=== PATIENT | female | born 1975 | race Caucasian/White ===

== ENCOUNTER 2019-08-16 16:40 | Emergency (ER) | payer MEDICAID, OTHER ==
[~2019-08-16] VITALS: Ht 177.8 cm; Wt 95.3 kg
[2019-08-16] MEDS ORDERED: LEVOTHYROXINE175 MCG ORAL (17:06)
[2019-08-16] MEDS ORDERED: SYNTHROID75 MCG ORAL (17:15)
[2019-08-16] MEDS ORDERED: IBUPROFEN600 MG ORAL (17:15)
--- NOTE | 2019-08-16 17:20 | NUR ---
ER DISCHARGE NOTE: Patient is cleared to be discharged per ERMD, pt is aox4, on room air, with stable vital signs. pt was given dc and prescription instructions, pt was able to verbalize understanding, pt is able to ambulate with steady gait. pt took all belongings.
[2019-08-16 18:05] VITALS: BP 114/76
--- NOTE | 2019-08-16 22:34 | Emergency Room Report ---
History of Present Illness General Chief Complaint: Medication Refill Source: Patient Present Illness Allergies: Coded Allergies: ASPIRIN (Verified Allergy, Unknown, 08/16/19) DIPHENHYDRAMINE (Verified Allergy, Unknown, 08/16/19) PROCHLORPERAZINE (Verified Allergy, Unknown, 08/16/19) Physical Exam Vital Signs Date Time Temp Pulse Resp B/P (MAP) Pulse Ox O2 Delivery O2 Flow Rate FiO2 08/16/19 17:03 98.1 67 19 114/76 (89) 96 Room Air Medical Decision Making Diagnostic Impression: Primary Impression: Encounter for medication refill Last Vital Signs Date Time Temp Pulse Resp B/P (MAP) Pulse Ox O2 Delivery O2 Flow Rate FiO2 08/16/19 18:05 98.1 19 114/76 96 Room Air 08/16/19 17:03 67 Status: improved Disposition: HOME, SELF-CARE Condition: Stable Scripts Ibuprofen* (MOTRIN*) 600 Mg Tablet 600 MG ORAL Q8H PRN for For Pain, #30 TAB 0 Refills Prov: Rajendra Cowan MD 08/16/19 Levothyroxine Sodium* (SYNTHROID*) 75 Mcg Tablet 75 MCG ORAL DAILY, #30 TAB Take in the morning on an empty stomach, at least 30 minutes before food. Prov: Rajendra Cowan MD 08/16/19 Referrals: [facility],REFERRING (PCP) Sergey Fisher MD Patient Instructions: Medicine Refill at the Emergency Department Rajendra Cowan MD Aug 16, 2019 22:34
== END 2019-08-16 17:40 | disposition home or self-care (01) ==
LOC: EMR 17:18
DX: E03.9 Hypothyroidism, unspecified (principal); Z76.0 Encounter for issue of repeat prescription; Z88.6 Allergy status to analgesic agent; Z88.8 Allergy status to other drugs, medicaments and biological substances
CPT/HCPCS: 99282

== ENCOUNTER 2019-10-07 18:53 | Emergency (ER) | payer OTHER ==
[~2019-10-07] VITALS: Ht 177.8 cm; Wt 99.8 kg
[~2019-10-07 18:53] MED LIST: IBUPROFEN600 MG ORAL; LEVOTHYROXINE175 MCG ORAL; SYNTHROID75 MCG ORAL
--- NOTE | 2019-10-07 19:00 | NUR ---
not in room
--- NOTE | 2019-10-07 19:26 | NUR ---
ED Nurse Note: Walk-in patient with complaints of sore throat and cough x 5 days. Patient reports history of fever but has not taken any medication, just rest.
[2019-10-07 19:27] VITALS: BP 137/78
--- NOTE | 2019-10-07 19:43 | Emergency Room Report ---
History of Present Illness General Chief Complaint: Upper Respiratory Illness Source: Patient Present Illness HPI 44 YO Female presents to the ED c/o cough congestion body aches, chills and 8/ [address] x 1 week. Pt. has only tried rest at home to relieve her symptoms. She reports initially experiencing fevers which resolved with out medication. She reports hx of hypothyroid and asthma. Pt. admits to being a smoker. PT. c/o significant nasal drainage production. States cough is worse at night. Pt. reports nausea without vomiting or abdominal pain. Pt. Denies hx of GERD. Pt. denies blood tinged sputum. She reports frequently needing to blow her nose. Allergies: Coded Allergies: ASPIRIN (Verified Allergy, Unknown, 08/16/19) DIPHENHYDRAMINE (Verified Allergy, Unknown, 08/16/19) PROCHLORPERAZINE (Verified Allergy, Unknown, 08/16/19) Patient History Past Medical History: see triage record Past Surgical History: none Pertinent Family History: none Last Menstrual Period: Oct 2012 Now: No Reviewed Nursing Documentation: PMH: Agreed; PSxH: Agreed Nursing Documentation-PMH Past Medical History: No Stated History Review of Systems All Other Systems: negative except mentioned in HPI Physical Exam Vital Signs Date Time Temp Pulse Resp B/P (MAP) Pulse Ox O2 Delivery O2 Flow Rate FiO2 10/07/19 19:08 97.7 111 19 137/78 (97) 96 Room Air Sp02 EP Interpretation: reviewed, normal General Appearance: no apparent distress, alert, GCS 15, non-toxic Head: normocephalic, atraumatic Eyes: bilateral eye normal inspection, bilateral eye PERRL ENT: hearing grossly normal, normal pharynx, normal voice, TMs + canals normal , uvula midline, tonsillar swelling, pharyngeal erythema - evidence of PND, no exudates Neck: full range of motion, no meningismus, no bony tend Respiratory: lungs clear, normal breath sounds, no respiratory distress, no accessory muscle use, speaking full sentences, wheezing - scant expiratory wheeze most prominent with cough. Cardiovascular #1: regular rate, rhythm Gastrointestinal: non tender, soft Musculoskeletal: normal range of motion, gait/station normal, non-tender Neurologic: alert, motor strength/tone normal, oriented x3, sensory intact, responsive, speech normal Psychiatric: judgement/insight normal Lymphatic: no adenopathy Medical Decision Making PA Attestation Dr. Millard Is my supervising Physician whom patient management has been discussed with. Diagnostic Impression: Primary Impression: Viral URI with cough Additional Impression: Sore throat (viral) ER Course 44 YO Female presents to the ED c/o cough congestion body aches, chills and 8/ [address] x 1 week. Pt. has only tried rest at home to relieve her symptoms. She reports initially experiencing fevers which resolved with out medication. She reports hx of hypothyroid and asthma. Pt. admits to being a smoker. PT. c/o significant nasal drainage production. States cough is worse at night. Pt. reports nausea without vomiting or abdominal pain. Pt. Denies hx of GERD. Pt. denies blood tinged sputum. She reports frequently needing to blow her nose. Ddx considered but are not limited to URI, pneumonia, PE, strep pharyngitis, meningitis. Vital signs: pt. is tachycardic. Pt. is afebrile, the remaining VS are WNL H&PE are most consistent with URI- no meningeal signs, oropharynx is not involved, no evidence of bacterial infection at this time. PT. does not meet CENTOR criteria. Pt. symptoms align most with viral syndrome. ORDERS: none required at this time, the diagnosis is clinical ED INTERVENTIONS: None required at this time. --PT. EDUCATION: Discussed antibiotic resistance with inappropriate prescribing of antibiotics for viral illnesses. Discussed signs and symptoms to indicate viral illness versus bacterial illness. DISCHARGE: At this time pt. is stable for d/c to home. Will provide printed patient care instructions, and any necessary prescriptions. Care plan and follow up instructions have been discussed with the patient prior to discharge. Last Vital Signs Date Time Temp Pulse Resp B/P (MAP) Pulse Ox O2 Delivery O2 Flow Rate FiO2 10/07/19 19:27 111 19 Room Air 10/07/19 19:27 97.7 137/78 96 Status: improved Disposition: HOME, SELF-CARE Condition: Stable Scripts Ibuprofen* (MOTRIN*) 600 Mg Tablet 600 MG ORAL THREE TIMES A DAY, #30 TAB 0 Refills Prov: Mena Holley 10/07/19 Benzonatate* (TESSALON PERLE*) 100 Mg Capsule 100 MG ORAL THREE TIMES A DAY, #21 PERLE Prov: Mena Holley 10/07/19 Guaifenesin/Dextromethorphan (Darioitussin Cough-Chest Dm Liq) 237 Ml Liquid 5 ML PO Q6HR, #237 ML Prov: Mena Holley 10/07/19 Albuterol Sulfate* (ALBUTEROL SULFATE MDI*) 8.5 Gm Hfa.aer.ad 2 PUFF INH Q3H, #1 INH 0 Refills Prov: Mena Holley 10/07/19 Patient Instructions: Upper Respiratory Infection, Adult Additional Instructions: Take medications as directed. Follow up with a Primary Care Provider in 3-5 days, even if your symptoms have resolved. --Please review list of primary care clinics, if you do not already have a primary care provider Return sooner to ED if new symptoms occur, or current symptoms become worse. Do not drink alcohol, drive, or operate heavy machinery while taking Cough Syrup as this may cause drowsiness. - Please note that this Emergency Department Report was dictated using [employer] technology software, occasionally this can lead to erroneous entry secondary to interpretation by the dictation equipment. Mena Holley Oct 07, 2019 19:42
[2019-10-07] MEDS ORDERED: TESSALON PERLE100 MG ORAL (19:48)
[2019-10-07] MEDS ORDERED: ROBITUSSIN COU237 M2 PO (19:48)
[2019-10-07] MEDS ORDERED: ALBUTEROL SULF8.5 GM INH (19:48)
[2019-10-07] MEDS ORDERED: IBUPROFEN600 MG ORAL (19:51)
[2019-10-07 19:52] VITALS: BP 137/78
--- NOTE | 2019-10-07 19:52 | NUR ---
ER DISCHARGE NOTE: Patient is cleared to be discharged per ERMD, pt is aox4, on room air, with stable vital signs. pt was given dc and prescription instructions, pt was able to verbalize understanding, pt id band removed without complications. pt is able to ambulate with steady gait. pt took all belongings.
== END 2019-10-07 19:53 | disposition home or self-care (01) ==
LOC: EMR 19:42
DX: J06.9 Acute upper respiratory infection, unspecified (principal); R05 Cough; J02.8 Acute pharyngitis due to other specified organisms; Z88.6 Allergy status to analgesic agent; Z88.8 Allergy status to other drugs, medicaments and biological substances
CPT/HCPCS: 99282

== ENCOUNTER 2019-10-16 22:56 | Emergency (ER) | payer SELFPAY ==
[~2019-10-16] VITALS: Ht 177.8 cm; Wt 99.8 kg
[~2019-10-16 22:56] MED LIST changes: +ALBUTEROL SULF8.5 GM INH; +ROBITUSSIN COU237 M2 PO; +TESSALON PERLE100 MG ORAL
[2019-10-16 23:25] VITALS: BP 136/88
--- NOTE | 2019-10-16 23:25 | NUR ---
ED Nurse Note: Pt walked into ED from home for c/o flu like symptoms onset 3 days ago. Pt reports painful cough, headache, lower back pain, abdominal pain and nausea. Pt is aaox4, speaking in full sentences, ambulatory with steady gait. Will continue to monitor.
--- NOTE | 2019-10-17 01:00 | NUR ---
ED Nurse Note: Pt resting in bed at this time. No acute distress noted. Will continue to monitor.
[2019-10-17 01:11] LABS: APPEARANCE,URINE SLIGHTLY CLOUDY; BILIRUBIN, URINE NEGATIVE (NEGATIVE); GLUCOSE, URINE (UA) NEGATIVE (NEGATIVE); KETONES,URINE 3+ (NEGATIVE); LEUKOCYTE ESTERASE ,URINE NEGATIVE (NEGATIVE); NITRITE,URINE NEGATIVE (NEGATIVE); PH,URINE 6 (4.5-8.0); PROTEIN,URINE 2+ (NEGATIVE); UROBILINOGEN,URINE 1 MG/DL (0.0-1.0)
[2019-10-17 01:15] LABS: BASOPHILS % (AUTO) 0.8 % (0.0-2.0); EOSINOPHILS % (AUTO) 0.1 % (0.0-3.0); HEMATOCRIT 45.9 % (37.0-47.0); HEMOGLOBIN 16.5 G/DL (12.0-16.0); LYMPHOCYTES % (AUTO) 5.5 % (20.0-45.0); MEAN CORPUSCULAR VOLUME 92 FL (80-99); MONOCYTES % (AUTO) 12.7 % (1.0-10.0); NEUTROPHILS % (AUTO) 80.9 % (45.0-75.0); PLATELET COUNT 166 K/UL (150-450); RED BLOOD COUNT 5.01 M/UL (4.20-5.40); RED CELL DISTRIBUTION WIDTH 10.9 % (11.6-14.8)
[2019-10-17 01:23] LABS: ANION GAP 12 mmol/L (5-15); BLOOD UREA NITROGEN 10 mg/dL (7-18); CALCIUM 9.2 MG/DL (8.5-10.1); CARBON DIOXIDE 26 MMOL/L (21-32); CHLORIDE 102 MMOL/L (98-107); CREATININE 0.7 MG/DL (0.55-1.30); POTASSIUM 3.9 MMOL/L (3.5-5.1); SODIUM 140 MMOL/L (136-145)
[2019-10-17 01:24] LABS: COLOR,URINE YELLOW
[2019-10-17 01:31] LABS: ALANINE AMINOTRANSFERASE 81 U/L (12-78); ALBUMIN 4.2 G/DL (3.4-5.0); ALBUMIN/GLOBULIN RATIO 1.2 (1.0-2.7); ALKALINE PHOSPHATASE 68 U/L (46-116); ASPARTATE AMINO TRANSFERASE 37 U/L (15-37); BILIRUBIN,TOTAL 0.4 MG/DL (0.2-1.0); PHOSPHORUS 3.4 MG/DL (2.5-4.9)
[2019-10-17] MEDS ORDERED: Ketorolac 30mg Inj IV ONE (02:30)
[2019-10-17] MEDS ORDERED: Acetaminophen 500mg (ES) tab ORAL ONE (02:30)
[2019-10-17 03:00] VITALS: BP 137/84
[2019-10-17] MEDS ORDERED: HYDROcodone/Acetamin 5/325 tab ORAL ONE (03:00)
[2019-10-17] MEDS ORDERED: TAMIFLU75 MG ORAL (03:07)
[2019-10-17] MEDS ORDERED: TYLENOL325 MG ORAL (03:07)
[2019-10-17] MEDS ORDERED: IBUPROFEN600 MG ORAL (03:07)
[2019-10-17] MEDS ORDERED: CEPHALEXIN500 M1 ORAL (03:08)
[2019-10-17] MEDS ORDERED: GUAIFENESI100 MG/5 M ORAL (03:12)
--- NOTE | 2019-10-17 03:12 | Emergency Room Report ---
History of Present Illness General Chief Complaint: Flu Like Symptoms Source: Patient Present Illness HPI 45-year-old female history of hypothyroidism presents with cough, congestion, fever/chills x3 days no iron alleviating factors severity is moderate, constant she also endorses body aches, no chest pain no shortness of breath, no sputum production, patient presents for evaluation Allergies: Coded Allergies: ASPIRIN (Verified Allergy, Unknown, 08/16/19) DIPHENHYDRAMINE (Verified Allergy, Unknown, 08/16/19) PROCHLORPERAZINE (Verified Allergy, Unknown, 08/16/19) Patient History Past Medical History: see triage record Now: No Reviewed Nursing Documentation: PMH: Agreed; PSxH: Agreed Nursing Documentation-PMH Past Medical History: No History, Except For Review of Systems All Other Systems: negative except mentioned in HPI Physical Exam Vital Signs Date Time Temp Pulse Resp B/P (MAP) Pulse Ox O2 Delivery O2 Flow Rate FiO2 10/16/19 23:17 98.2 138 26 136/88 (104) 96 Room Air Sp02 EP Interpretation: reviewed, normal General Appearance: well appearing, no apparent distress, alert Head: normocephalic, atraumatic Eyes: bilateral eye PERRL, bilateral eye EOMI ENT: uvula midline, moist mucus membranes, nasal congestion Neck: supple, thyroid normal, supple/symm/no masses Respiratory: lungs clear, no respiratory distress, no retraction, no accessory muscle use Cardiovascular #1: normal peripheral pulses, no edema, no gallop, no murmur, tachycardia Gastrointestinal: non tender, soft, no guarding, no rebound Musculoskeletal: normal inspection Neurologic: alert, oriented x3 Psychiatric: mood/affect normal Skin: no rash, warm/dry Medical Decision Making Diagnostic Impression: Primary Impression: Influenza-like symptoms Additional Impression: UTI (urinary tract infection) Qualified Codes: N30.00 - Acute cystitis without hematuria ER Course 45-year-old female presents with flulike symptoms, tachycardic, dehydrated, will start fluid resuscitation, will provide Tylenol, Motrin. Patient with a negative flu swab however given her symptoms tachycardia and muscle aches, she may have the flu given swabs are limited in their ability to detect flu chest x-ray shows no pneumonia, patient also found to have a UTI will provide antibiotics, will provide Tamiflu disposition home with return precautions Patient tachycardia significantly improved Laboratory Tests Test 10/17/19 00:20 10/17/19 00:30 Urine Color Yellow Urine Appearance Slightly cloudy Urine pH 6 (4.5-8.0) Urine Specific [place] 1.025 (1.005-1.035) Urine Protein 2+ (NEGATIVE) H Urine Glucose (UA) Negative (NEGATIVE) Urine Ketones 3+ (NEGATIVE) H Urine Blood 1+ (NEGATIVE) H Urine Nitrite Negative (NEGATIVE) Urine Bilirubin Negative (NEGATIVE) Urine Urobilinogen 1 MG/DL (0.0-1.0) H Urine Leukocyte Esterase Negative (NEGATIVE) Urine RBC 2-4 /HPF (0 - 2) H Urine WBC 2-4 /HPF (0 - 2) Urine Squamous Epithelial Cells Moderate /LPF (NONE/OCC) H Urine Bacteria Moderate /HPF (NONE) H Urine HCG, Qualitative Negative (NEGATIVE) Urine Opiates Screen Negative (NEGATIVE) Urine Barbiturates Screen Negative (NEGATIVE) Phencyclidine (PCP) Screen Negative (NEGATIVE) Urine Amphetamines Screen Negative (NEGATIVE) Urine Benzodiazepines Screen Negative (NEGATIVE) Urine Cocaine Screen Negative (NEGATIVE) Urine Marijuana (THC) Screen Negative (NEGATIVE) White Blood Count 7.0 K/UL (4.8-10.8) Red Blood Count 5.01 M/UL (4.20-5.40) Hemoglobin 16.5 G/DL (12.0-16.0) H Hematocrit 45.9 % (37.0-47.0) Mean Corpuscular Volume 92 FL (80-99) Mean Corpuscular Hemoglobin 33.0 PG (27.0-31.0) H Mean Corpuscular Hemoglobin Concent 36.0 G/DL (32.0-36.0) Red Cell Distribution Width 10.9 % (11.6-14.8) L Platelet Count 166 K/UL (150-450) Mean Platelet Volume 11.8 FL (6.5-10.1) H Neutrophils (%) (Auto) 80.9 % (45.0-75.0) H Lymphocytes (%) (Auto) 5.5 % (20.0-45.0) L Monocytes (%) (Auto) 12.7 % (1.0-10.0) H Eosinophils (%) (Auto) 0.1 % (0.0-3.0) Basophils (%) (Auto) 0.8 % (0.0-2.0) Prothrombin Time 10.4 SEC (9.30-11.50) Prothrombin Time INR 1.0 (0.9-1.1) PTT 30 SEC (23-33) Sodium Level 140 MMOL/L (136-145) Potassium Level 3.9 MMOL/L (3.5-5.1) Chloride Level 102 MMOL/L (98-107) Carbon Dioxide Level 26 MMOL/L (21-32) Anion Gap 12 mmol/L (5-15) Blood Urea Nitrogen 10 mg/dL (7-18) Creatinine 0.7 MG/DL (0.55-1.30) Estimate Glomerular Filtration Rate > 60 mL/min (>60) Glucose Level 118 MG/DL (74-106) H Lactic Acid Level 1.10 mmol/L (0.4-2.0) Calcium Level 9.2 MG/DL (8.5-10.1) Phosphorus Level 3.4 MG/DL (2.5-4.9) Magnesium Level 1.9 MG/DL (1.8-2.4) Total Bilirubin 0.4 MG/DL (0.2-1.0) Aspartate Amino Transferase (AST) 37 U/L (15-37) Alanine Aminotransferase (ALT) 81 U/L (12-78) H Alkaline Phosphatase 68 U/L (46-116) Total Protein 7.8 G/DL (6.4-8.2) Albumin 4.2 G/DL (3.4-5.0) Globulin 3.6 g/dL Albumin/Globulin Ratio 1.2 (1.0-2.7) Lipase 152 U/L (73-393) Microbiology Date/Time Source Procedure Growth Status 10/17/19 00:30 Nasal Nares - Final Complete 10/17/19 00:30 Nasal Nares - Final Complete EKG Diagnostic Results EKG Time: 00:52 EP Interpretation: Sinus tachycardia, rate 113, QTc 47, no acute ST elevations , normal axis Chest X-Ray Diagnostic Results Chest X-Ray Diagnostic Results : Chest X-Ray Ordered: Yes # of Views/Limited/Complete: 1 View Indication: Other - cough EP Interpretation: Yes Interpretation: no consolidation, no effusion, no pneumothorax, no acute cardiopulmonary disease Impression: No acute disease Electronically Signed by: Chris Millard MD Last Vital Signs Date Time Temp Pulse Resp B/P (MAP) Pulse Ox O2 Delivery O2 Flow Rate FiO2 10/16/19 23:25 138 26 Room Air 10/16/19 23:25 98.2 136/88 96 Disposition: HOME, SELF-CARE Condition: Stable Scripts Guaifenesin* (GUAIFENESIN) 100 Mg/5 Ml Liquid 15 ML ORAL Q8H PRN for congestion, #120 ML 0 Refills Prov: Chris Millard MD 10/17/19 Cephalexin* (KEFLEX*) 500 Mg Tablet 500 MG ORAL EVERY 6 HOURS, #28 CAP Prov: Chris Millard MD 10/17/19 Acetaminophen (Tylenol) 325 Mg Tablet 650 MG ORAL Q6H PRN for Prn Pain/Headache/Temp > 101, #30 TAB 0 Refills Prov: Chris Millard MD 10/17/19 Ibuprofen* (MOTRIN*) 600 Mg Tablet 600 MG ORAL Q8H PRN for For Pain, #30 TAB 0 Refills Prov: Chris Millard MD 10/17/19 Oseltamivir Phosphate (Tamiflu) 75 Mg Capsule 75 MG ORAL TWICE A DAY, #10 CAP Prov: Chris Millard MD 10/17/19 [facility] Departure Forms: Return to Work Return to Work Date: Oct 20, 2019 Patient Instructions: Influenza, Adult, [id number], Urinary Tract Infection, [id number] Additional Instructions: The patient was provided with discharge instructions, notified to follow-up with a primary care doctor and or specialist in the next 24-48 hours, and to return to the ED if they have worsening of their symptoms. Please note that this report is being documented using [employer] technology. This can lead to erroneous entry secondary to incorrect interpretation by the dictating instrument. Chris Millard MD Oct 17, 2019 03:12
[2019-10-17] MEDS ORDERED: Cephalexin 500mg cap ORAL ONE (03:15)
[2019-10-17 03:30] VITALS: BP 137/84
[2019-10-17] MEDS ORDERED: Benzonatate 100mg Perles ORAL ONE (03:30)
--- NOTE | 2019-10-17 03:30 | NUR ---
ER DISCHARGE NOTE: Patient is cleared to be discharged per ERMD, pt is aox4, on room air, with stable vital signs. pt was given dc and prescription instructions, pt was able to verbalize understanding, pt id band and iv site removed without complications. pt is able to ambulate with steady gait. pt took all belongings.
--- NOTE | 2019-10-17 04:05 | Diagnostic Imaging Report ---
EXAM: XR Chest, 1 View CLINICAL HISTORY: COUGH TECHNIQUE: Frontal view of the chest. COMPARISON: No relevant prior studies available. FINDINGS: Study limited to a single AP portable view. The cardiac and mediastinal silhouettes are unremarkable. No focal parenchymal consolidation, pneumothorax or pleural fluid collections. Soft tissue attenuation Limited imaging of both lower lobes. Recommend upright PA and lateral views of the chest.
[2019-10-17] MEDS ORDERED: PROMETHAZINE-C118 M1 ORAL (11:34)
== END 2019-10-17 03:30 | disposition home or self-care (01) ==
LOC: EMR 23:59
DX: R05 Cough (principal); N30.00 Acute cystitis without hematuria; R00.0 Tachycardia, unspecified; E86.0 Dehydration; Z88.6 Allergy status to analgesic agent
CPT/HCPCS: 36415; 71045; 80053; 80307; 81003; 81025; 83605; 83690; 83735; 84100; 85025; 85610; 85730; 86710; 87040; 87086; 96374; 99284; J1885; J7030

== ENCOUNTER 2019-10-17 11:14 | Emergency (ER) | payer SELFPAY ==
[~2019-10-17] VITALS: Ht 177.8 cm; Wt 99.8 kg
[~2019-10-17 11:14] MED LIST changes: +CEPHALEXIN500 M1 ORAL; +GUAIFENESI100 MG/5 M ORAL; +TAMIFLU75 MG ORAL; +TYLENOL325 MG ORAL
--- NOTE | 2019-10-17 11:25 | NUR ---
ED Nurse Note: Patient arrived to ED from home. She states that she was here yesterday for flu-like s/s, but she returned today requesting a prescription for migraine medication and cough syrup. Patient AxO x 4, VSS. No s/s of acute distress. Bed in lowest position.
[2019-10-17 11:26] VITALS: BP 119/78
[2019-10-17] MEDS ORDERED: PROMETHAZINE-C118 M1 ORAL (11:34)
[2019-10-17 11:38] VITALS: BP 119/78
--- NOTE | 2019-10-17 11:38 | NUR ---
ED DISCHARGE NOTE: Patient cleared for DC by Dr. Cowan. Patient AxO x 4, VSS. Patient verbalized understanding of DC instructions. Patient ID band removed. Patient ambulates with steady gait and took all belongings.
--- NOTE | 2019-10-17 15:34 | Emergency Room Report ---
History of Present Illness General Chief Complaint: Headache Source: Patient, Medical Record Present Illness HPI 20-year-old female presents ED for evaluation. Complaining of flulike symptoms. Was seen here yesterday for similar symptoms. Was prescribed medications but states that she is unable to fill some of them at the pharmacy she went to. States that her cough is not improving. Is requesting cough medication. Denies fevers or chills. Pain is dull, 6 out of 10, nonradiating. No other aggravating relieving factors. Denies any other associated symptoms Allergies: Coded Allergies: ASPIRIN (Verified Allergy, Unknown, 08/16/19) DIPHENHYDRAMINE (Verified Allergy, Unknown, 08/16/19) PROCHLORPERAZINE (Verified Allergy, Unknown, 08/16/19) Patient History Past Medical History: none Past Surgical History: none Pertinent Family History: none Social History: Denies: smoking, alcohol use, drug use Last Menstrual Period: hystrectomy Now: No Immunizations: UTD Reviewed Nursing Documentation: PMH: Agreed; PSxH: Agreed Nursing Documentation-PMH Past Medical History: No History, Except For Review of Systems All Other Systems: negative except mentioned in HPI Physical Exam Vital Signs Date Time Temp Pulse Resp B/P (MAP) Pulse Ox O2 Delivery O2 Flow Rate FiO2 10/17/19 11:20 98.1 108 18 119/78 (92) 95 Room Air Sp02 EP Interpretation: reviewed, normal General Appearance: no apparent distress, alert, GCS 15, non-toxic Head: normocephalic, atraumatic Eyes: bilateral eye normal inspection, bilateral eye PERRL ENT: hearing grossly normal, normal pharynx, no angioedema, normal voice Neck: full range of motion, supple/symm/no masses Respiratory: chest non-tender, lungs clear, normal breath sounds, speaking full sentences Cardiovascular #1: regular rate, rhythm, no edema Cardiovascular #2: 2+ carotid (R), 2+ carotid (L), 2+ radial (R), 2+ radial (L) , 2+ dorsalis pedis (R), 2+ dorsalis pedis (L) Gastrointestinal: normal bowel sounds, non tender, soft, non-distended, no guarding, no rebound Rectal: deferred Genitourinary: normal inspection, no CVA tenderness Musculoskeletal: back normal, normal range of motion, gait/station normal, non- tender Neurologic: alert, motor strength/tone normal, oriented x3, sensory intact, responsive, speech normal Psychiatric: judgement/insight normal, memory normal, mood/affect normal, no suicidal/homicidal ideation Reflexes: 3+ bicep (R), 3+ bicep (L), 3+ tricep (R), 3+ tricep (L), 3+ knee (R) , 3+ knee (L) Lymphatic: no adenopathy Medical Decision Making Diagnostic Impression: Primary Impression: Flu-like symptoms ER Course Hospital Course 45 yo F presents with flu like symptoms. requesting cough medication Differential diagnoses include: URI, pharyngitis, otitis media, influenza Clinical course Patient placed on stretcher. After initial history physical exam reveals a female in no acute distress. Bilateral TM unremarkable, no pharyngeal erythema. Lungs clear. No CVA tenderness. I reviewed EMR from previous visit. Was prescribed Tamiflu and other medications. We will add prescription for promethazine/codeine. Safe for discharge for close outpatient follow-up. I will provide referrals Diagnosis - influenza-like symptoms Stable and discharged home with prescriptions for promethazine/codeine. drink plenty of fluids. Instructed to followup with PMD. Return to ED if symptoms recur or worsen Last Vital Signs Date Time Temp Pulse Resp B/P (MAP) Pulse Ox O2 Delivery O2 Flow Rate FiO2 10/17/19 11:38 98.1 18 119/78 95 Room Air 10/17/19 11:20 108 Status: improved Disposition: HOME, SELF-CARE Condition: Stable Scripts Codeine/Promethazine Hcl* (PROMETHAZINE-CODEINE SYRUP*) 118 Ml Syrup 5 ML ORAL Q6H PRN for For Cough, #118 ML 0 Refills Prov: Rajendra Cowan MD 10/17/19 Referrals: NOT CHOSEN IPA/,REFERRING (PCP) Krishna [facility] Patient Instructions: Influenza, Adult, [id number] Rajendra Cowan MD Oct 17, 2019 15:34
== END 2019-10-17 11:38 | disposition home or self-care (01) ==
LOC: EMR 11:35
DX: R05 Cough (principal); Z88.6 Allergy status to analgesic agent; Z90.710 Acquired absence of both cervix and uterus
CPT/HCPCS: 99282

== ENCOUNTER → 2019-10-31 | Emergency (ER) | payer SELFPAY ==
[~2019-10-31] VITALS: Ht 177.8 cm; Wt 99.8 kg
[~2019-10-31] MED LIST changes: +PROMETHAZINE-C118 M1 ORAL
[2019-10-31 22:55] VITALS: BP 120/76
--- NOTE | 2019-10-31 22:57 | NUR ---
ER Nurse Note: Pt walked in c/o burning while urinating. Pt stated the s/s occured a few days ago, got treated with antibiotics but not effective. Pt stated no difficulty urinating, however, noted pain and burning. Will continue to montior.
--- NOTE | 2019-10-31 23:06 | Emergency Room Report ---
History of Present Illness General Chief Complaint: Female Urogenital Problems Source: Patient Present Illness HPI This a 45-year-old female with no past medical history. She presents with complaint of cough and dysuria. She said this been ongoing for about a month. She was seen here and x-ray was negative. She was given antibiotics. She states she still have some lower abdominal pain. No fever chills but no nausea no vomiting. Cough is nonproductive nature. Worse with urination. Allergies: Coded Allergies: ASPIRIN (Verified Allergy, Unknown, 08/16/19) DIPHENHYDRAMINE (Verified Allergy, Unknown, 08/16/19) PROCHLORPERAZINE (Verified Allergy, Unknown, 08/16/19) Patient History Past Medical History: see triage record, old chart reviewed Past Surgical History: none Pertinent Family History: none Social History: Denies: smoking Now: No Immunizations: other Reviewed Nursing Documentation: PMH: Agreed; PSxH: Agreed Review of Systems Eye: Denies: eye pain, blurred vision ENT: Denies: ear pain, nose congestion, throat swelling Respiratory: Reports: cough; Denies: shortness of breath Cardiovascular: Denies: chest pain, palpitations Gastrointestinal: Denies: abdominal pain, diarrhea, nausea, vomiting Genitourinary: Reports: dysuria, frequency Musculoskeletal: Denies: back pain, joint pain Skin: Denies: rash Neurological: Denies: headache, numbness Endocrine: Denies: increased thirst, increased urine Hematologic/Lymphatic: Denies: easy bruising All Other Systems: negative except mentioned in HPI Physical Exam Vital Signs Date Time Temp Pulse Resp B/P (MAP) Pulse Ox O2 Delivery O2 Flow Rate FiO2 10/31/19 22:07 97.9 94 19 120/76 (91) 96 Room Air Vitals normal Sp02 EP Interpretation: reviewed, normal General Appearance: well appearing, no apparent distress, alert Head: normocephalic, atraumatic Eyes: bilateral eye PERRL, bilateral eye EOMI ENT: hearing grossly normal, normal pharynx Neck: full range of motion, supple, no meningismus Respiratory: chest non-tender, lungs clear, normal breath sounds Cardiovascular #1: regular rate, rhythm, no murmur Gastrointestinal: normal bowel sounds, non tender, no mass, no organomegaly, no bruit, non-distended Genitourinary: other - 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 External exam normal. Internal exam shows scant discharge. Musculoskeletal: back normal, normal range of motion, gait/station normal Psychiatric: mood/affect normal Medical Decision Making Diagnostic Impression: Primary Impression: Pelvic pain ER Course Patient presents with pelvic pain. No evidence of a urinary tract infection. She may have a yeast infection since she has been on lots of antibiotics. CT scan negative for any pelvic pathology. Wet mount pending to see if she has any yeast infection, trichomonas, or bacterial vaginosis. Patient with pelvic pain. No evidence of PID since she had a hysterectomy already. No evidence of a bacterial vaginosis or yeast infection. Urine is negative. Will discharge home. CT/MRI/US Diagnostic Results CT/MRI/US Diagnostic Results : Imaging Test Ordered: CT abdomen pelvis Impression Negative per radiologist Last Vital Signs Date Time Temp Pulse Resp B/P (MAP) Pulse Ox O2 Delivery O2 Flow Rate FiO2 10/31/19 22:55 97.9 94 19 120/76 96 Room Air Status: improved Disposition: HOME, SELF-CARE Condition: Stable Scripts Ibuprofen* (MOTRIN*) 600 Mg Tablet 600 MG ORAL Q6H PRN for For Pain, #30 TAB 0 Refills Prov: Thong Linn MD 11/01/19 Additional Instructions: Follow-up with your doctor in 7 days. You may need a referral to see a digital imager for your pelvic pain. There is no evidence of any infection. Take your inhaler for your cough. Return if worse. Thong Linn MD Oct 31, 2019 23:06
[2019-10-31 23:10] LABS: APPEARANCE,URINE CLEAR; BILIRUBIN, URINE NEGATIVE (NEGATIVE); COLOR,URINE AMBER; GLUCOSE, URINE (UA) NEGATIVE (NEGATIVE); KETONES,URINE NEGATIVE (NEGATIVE); LEUKOCYTE ESTERASE ,URINE NEGATIVE (NEGATIVE); NITRITE,URINE NEGATIVE (NEGATIVE); PH,URINE 6 (4.5-8.0); PROTEIN,URINE NEGATIVE (NEGATIVE); UROBILINOGEN,URINE NORMAL MG/DL (0.0-1.0)
--- NOTE | 2019-10-31 23:38 | NUR ---
ER Nurse Note: Pt stable, no signs of distress, calm. Pt denies pain. Pt in CT
--- NOTE | 2019-11-01 00:04 | Diagnostic Imaging Report ---
INDICATION: Abdominal pain TECHNIQUE: Continuous helical transaxial imaging of the abdomen and pelvis was obtained from the lung bases to the pubic symphysis. No intravenous contrast was administered. Coronal 2-D reformats were also obtained. Automatic Exposure Control was utilized. Total Dose length Product (DLP): 1702.[address] Dose Index Volume (CTDIvol): 27 mGy Comparison: none FINDINGS: Lungs: Lung bases are clear. Bilateral breast implants noted.. Liver: Unremarkable Gallbladder/biliary system: The gallbladder is contracted. No biliary ductal dilatation is identified.. Spleen: 4.2 cm hypodensity noted in the inferior pole of the liver nonspecific. This could be cystic or solid. Pancreas: Unremarkable Kidneys: No definite stone or hydronephrosis are identified.. Adrenal glands: Unremarkable Bowel: Unremarkable. Appendix at this place seen with no secondary signs of appendicitis demonstrated. Bladder: Bladder is mostly contracted. Aorta/IVC: Unremarkable Peritoneum: There is no free fluid. There are multiple tiny lymph nodes in the retroperitoneum adjacent to the aorta and IVC nonspecific.. Bones: Unremarkable IMPRESSION: No acute findings. Multiple tiny nonspecific retroperitoneal nodes, nonspecific in nature. 4.2 cm splenic hypodensity. Cystic versus solid. Contracted gallbladder not evaluated well. Note: Evaluation of solid organs is limited on non contrast imaging. [facility] has communicated the preliminary results to the Emergency Department. Their findings are largely concordant with this report. The CT scanner at [facility] is accredited by the [employer] and the scans are performed using dose optimization techniques as appropriate to a performed exam including Automatic Exposure control.
--- NOTE | 2019-11-01 00:15 | NUR ---
ER Nurse Note: Pt returned from CT. Wet mount performed by ; specimenes collected and sent to lab. Pt calm, understood the procedure. All safey measures met; will continue to montior.
== END | disposition home or self-care (01) ==
LOC: EMR 22:48
DX: R10.2 Pelvic and perineal pain (principal); R05 Cough; R30.0 Dysuria; Z88.6 Allergy status to analgesic agent; R10.30 Lower abdominal pain, unspecified
CPT/HCPCS: 74176; 81003; 81025; 87210; 99284